=== PATIENT | female | born 1970 | race Caucasian/White ===

== ENCOUNTER 2018-10-15 13:30 | Outpatient (CLI) | payer BC | END 2018-10-15 23:59 | disposition home or self-care (01) | LOC: CARD DIAG 13:30 | PROVIDERS: ATTEND Internal Medicine Hematology & Oncology | DX: C50.511 Malignant neoplasm of lower-outer quadrant of right female breast (principal); Z87.891 Personal history of nicotine dependence | CPT/HCPCS: 93306 ==